=== PATIENT | female | born 1995 | race Caucasian/White ===

== ENCOUNTER → 2016-10-11 | Outpatient (CLI) | payer BC ==
[~2016-10-11] MED LIST: BCPILLS PO; MONT1TAB3 PO
== END | disposition home or self-care (01) ==
LOC: C.LABSPEC 15:06
PROVIDERS: ATTEND Obstetrics & Gynecology
DX: R31.9 Hematuria, unspecified (principal)

== ENCOUNTER 2016-11-21 04:53 | Emergency (ER) | payer BC ==
[~2016-11-21] VITALS: Ht 165.1 cm; Wt 61.0 kg
[2016-11-21 04:58] VITALS: TEMP 36.8; Ht 165.1 cm; Wt 61.0 kg
--- NOTE | 2016-11-21 05:16 | EMERGENCY ROOM VISIT NOTE ---
History Report prepared by Devin: Ryan Knott Under the Supervision of: Dr. Elsa Guajardo D.O. First contact with patient: 05:02 Chief Complaint: ABDOMINAL PAIN Stated Complaint: STOMACH PAIN,NAUSEA,SHAKES Nursing Triage Summary: Patient reports abdominal pain History of Present Illness The patient is a 21 year old female who presents to the Emergency Room with complaints of worsening abdominal pain since 214. The patient woke up to the pain and was unable to fall back asleep. The pain is described as a squeezing sensation. She has never had pain like this before. She also complains of nausea and throat tightness. She did have diarrhea prior to arrival. The patient has not vomited and denies leg pain or swelling. She was feeling fine yesterday other than having some abdominal discomfort after eating perogies. The patient denies any major medical problems. Her LNMP was 5-6 weeks ago. Source of History: patient Onset: 214 Position: abdomen Quality: other (squeezing) Timing: worsening Associated Symptoms: + diarrhea, + nausea, No vomiting Review of Systems See HPI for pertinent positives & negatives. A total of 10 systems reviewed and were otherwise negative. Past Medical & Surgical Medical Problems: (1) Asthma (2) Environmental and seasonal allergies Surgical Problems: (1) H/O bilateral breast reduction surgery (2) Hx of tonsillectomy Family History No pertinent family history Social History Smoking Status: Never Smoker Alcohol Use: occasionally Marital Status: single Occupation Status: [employer] Current/Historical Medications Scheduled Control Pills ( Control Pills), 1 TAB PO HS Montelukast Sodium (Singulair), 10 MG PO HS Allergies Coded Allergies: No Known Allergies (Unverified , 11/21/16) Physical Exam Vital Signs Date Time Temp Pulse Resp B/P Pulse Ox O2 Delivery O2 Flow Rate FiO2 11/21/16 07:08 72 16 128/69 99 Room Air 11/21/16 06:29 83 16 120/67 99 Room Air 11/21/16 04:58 36.8 103 18 127/84 98 Room Air Physical Exam HEENT: Head - normocephalic and atraumatic Pupils are equal, round, and reactive to light. Extraocular eye muscles are intact, and sclera are anicteric. Nose - moist nasal mucosa without discharge. Mouth - moist buccal mucosa. Oropharynx is nonerythematous and there is no tonsillar exudate or edema noted. Neck: Supple; no JVD, nuchal rigidity, cervical lymphadenopathy, or auscultated bruits. Heart: Regular rate and rhythm. There is a normal S1 and S2 with no murmurs, clicks, or gallops appreciated. Lungs: Clear to auscultation bilaterally with no wheezes, rales, or rhonchi. Abdomen: Soft, some discomfort with palpation above the umbilicus and epigastric region, nondistended, with good bowel sounds. There are no palpable pulsatile masses or hepatosplenomegaly. There is no guarding, rigidity, or rebound noted. Extremities: No evidence of cyanosis, clubbing, or edema. There are easily palpable peripheral pulses. Skin: warm and dry with good turgor and no rashes. Medical Decision & Procedures ER Provider Diagnostic Interpretation: X-ray results as stated below per interpretation by me. CHEST/ABDOMEN X-RAY: moderate colonic fecal retention, normal bowel gas pattern , no free air, no signs of obstruction. Laboratory Results 11/21/16 05:55 Red Blood Count 4.38, Mean Corpuscular Volume 86.8, Mean Corpuscular Hemoglobin 29.7, Mean Corpuscular Hemoglobin Concent 34.2, Mean Platelet Volume 8.9, Neutrophils (%) (Auto) 49.1, Lymphocytes (%) (Auto) 33.0, Monocytes (%) (Auto) 12.7, Eosinophils (%) (Auto) 4.1, Basophils (%) (Auto) 0.9, Neutrophils # (Auto ) 2.87, Lymphocytes # (Auto) 1.93, Monocytes # (Auto) 0.74, Eosinophils # (Auto ) 0.24, Basophils # (Auto) 0.05 11/21/16 05:55 Test 11/21/16 05:55 White Blood Count 5.84 K/uL (4.8-10.8) Red Blood Count 4.38 M/uL (4.2-5.4) Hemoglobin 13.0 g/dL (12.0-16.0) Hematocrit 38.0 % (37-47) Mean Corpuscular Volume 86.8 fL (80-100) Mean Corpuscular Hemoglobin 29.7 pg (25-34) Mean Corpuscular Hemoglobin Concent 34.2 g/dl (32-36) Platelet Count 340 K/uL (130-400) Mean Platelet Volume 8.9 fL (7.4-10.4) Neutrophils (%) (Auto) 49.1 % Lymphocytes (%) (Auto) 33.0 % Monocytes (%) (Auto) 12.7 % Eosinophils (%) (Auto) 4.1 % Basophils (%) (Auto) 0.9 % Neutrophils # (Auto) 2.87 K/uL (1.4-6.5) Lymphocytes # (Auto) 1.93 K/uL (1.2-3.4) Monocytes # (Auto) 0.74 K/uL (0.11-0.59) Eosinophils # (Auto) 0.24 K/uL (0-0.5) Basophils # (Auto) 0.05 K/uL (0-0.2) RDW Standard Deviation 41.7 fL (36.4-46.3) RDW Coefficient of Variation 13.0 % (11.5-14.5) Immature Granulocyte % (Auto) 0.2 % Immature Granulocyte # (Auto) 0.01 K/uL (0.00-0.02) Urine Color YELLOW Urine Appearance CLEAR (CLEAR) Urine pH 7.0 (4.5-7.5) Urine Specific [place] 1.025 (1.000-1.030) Urine Protein TRACE (NEG) Urine Glucose (UA) NEG (NEG) Urine Ketones NEG (NEG) Urine Occult Blood 2+ (NEG) Urine Nitrite NEG (NEG) Urine Bilirubin NEG (NEG) Urine Urobilinogen NEG (NEG) Urine Leukocyte Esterase SMALL (NEG) Urine RBC 0-4 /hpf (0-4) Urine WBC 10-30 /hpf (0-5) Urine Epithelial Cells 5-10 /lpf (0-5) Urine Bacteria 1+ (NEG) Urine Mucus PRESENT (NONE PRSENT) Urine Test NEG (NEG) Anion Gap 9.0 mmol/L (3-11) Est Creatinine Clear Calc Drug Dose 112.8 ml/min Estimated GFR () 141.1 Estimated GFR (Non- 121.8 BUN/Creatinine Ratio 12.3 (10-20) Calcium Level 9.1 mg/dl (8.5-10.1) Total Bilirubin 0.4 mg/dl (0.2-1) Direct Bilirubin < 0.1 mg/dl (0-0.2) Aspartate Amino Transf (AST/SGOT) 23 U/L (15-37) Alanine Aminotransferase (ALT/SGPT) 21 U/L (12-78) Alkaline Phosphatase 67 U/L (45-117) Total Protein 7.3 gm/dl (6.4-8.2) Albumin 3.3 gm/dl (3.4-5.0) Lipase 116 U/L (73-393) Laboratory results per my review. Medications Administered Medications (Trade) Dose Ordered Sig/[facility] Route Start Time Stop Time Status Last Admin Dose Admin Ketorolac Tromethamine (Toradol Inj) 30 mg NOW STAT IV 11/21/16 06:08 11/21/16 06:09 DC 11/21/16 06:15 30 MG Ondansetron HCl (Zofran Inj) 4 mg NOW STAT IV 11/21/16 06:08 11/21/16 06:09 DC 11/21/16 06:15 4 MG Procedure Medications administered include Zofran IV, Toradol IV. ED Course 0508: Past medical records reviewed. The patient was evaluated in room B5. A complete history and physical exam was performed. IV lock was established. Labs were drawn as above. 0608: Zofran 4 mg IV, Toradol 30 mg IV. The patient had an obstruction series as described above. 0650: The patient is feeling good. Her pain is gone and she has not vomited. She verbalized understanding and agreement of the treatment plan. The patient is ready for discharge. Medical Decision The patient is a 21 year old female who presents to the ED with abdominal pain. Differential diagnosis includes gastritis, cystitis, appendicitis, GERD, pancreatitis. Laboratory interpretation: Normal electrolytes, normal renal function, normal glucose, normal LFTs and lipase, no leukocytosis, stable H&H. Urine was negative for , trace protein, 2+ blood, 10-30 white blood cells, small leukocyte esterase. Patient presents to the emergency department with diffuse abdominal pain. The patient has a urine specimen which appears to be contaminated. She has no urinary symptoms. The patient's pain subsided while here in the emergency department. She had no further vomiting. The throat tightness seemed to subside as the patient stated she may have been worked up about the situation. I given the patient multiple precautionary instructions and have asked her to follow-up with student health services if the pain persists. If symptoms worsen , she should return here to the ER. Impression Primary Impression: Diffuse abdominal pain Scribe Attestation The scribe's documentation has been prepared under my direction and personally reviewed by me in its entirety. I confirm that the note above accurately reflects all work, treatment, procedures, and medical decision making performed by me. Departure Information Dispostion Home / Self-Care Referrals Fadi Coker M.D. (PCP) Forms HOME CARE DOCUMENTATION FORM, IMPORTANT VISIT INFORMATION Patient Instructions My [facility] Additional Instructions Rest. Take a bland diet and plenty of clear liquids Follow up at student health services if pain continues. Return to the ER if symptoms worsen
[2016-11-21] MEDS ORDERED: KETOROLAC TROMETHAMINE 30 MG/ML VIAL IV STA (06:08)
[2016-11-21] MEDS ORDERED: ONDANSETRON INJ 2 MG/ML 2 ML VIAL IV STA (06:08)
[2016-11-21 06:24] LABS: BASO % 0.9 %; BASO ABS # 0.05 K/uL (0-0.2); COMPLETE YES; EOS % 4.1 %; IG% 0.2 %; LYMPH ABS # 1.93 K/uL (1.2-3.4); MEAN CELL VOLUME 86.8 fL (80-100); MEAN CORPUSCULAR HEMOGLOBIN 29.7 pg (25-34); MEAN CORPUSCULAR HGB CONC 34.2 g/dl (32-36); MEAN PLATELET VOLUME 8.9 fL (7.4-10.4); MONO % 12.7 %; NEUT % 49.1 %; PLATELET COUNT 340 K/uL (130-400); RED BLOOD COUNT 4.38 M/uL (4.2-5.4); WHITE BLOOD COUNT 5.84 K/uL (4.8-10.8)
[2016-11-21 06:26] LABS: MANUAL MICROSCOPIC REQUIRED? YES; URINE APPEARANCE CLEAR (CLEAR); URINE BILIRUBIN NEG (NEG); URINE COLOR YELLOW; URINE NITRITE NEG (NEG); URINE SPECIFIC GRAVITY 1.025 (1.000-1.030); UROBILINOGEN NEG (NEG)
[2016-11-21 06:32] LABS: REVIEW REQ? NO
[2016-11-21 06:33] LABS: URINE RBC 0-4 /hpf (0-4)
[2016-11-21 06:34] LABS: URINE BACTERIA 1+ (NEG); URINE MUCUS PRESENT (NONE PRSENT)
[2016-11-21 06:40] LABS: ALT/SGPT 21 U/L (12-78); BLOOD UREA NITROGEN 9 mg/dl (7-18); BUN/CREATININE RATIO 12.3 (10-20); CALCIUM 9.1 mg/dl (8.5-10.1); CARBON DIOXIDE 24 mmol/L (21-32); CHLORIDE 106 mmol/L (98-107); CREATININE 0.71 mg/dl (0.60-1.20); GLUCOSE 92 mg/dl (70-99); POTASSIUM 3.9 mmol/L (3.5-5.1); SODIUM 139 mmol/L (136-145)
[2016-11-21 06:43] LABS: ALKALINE PHOSPHATASE 67 U/L (45-117); AST/SGOT 23 U/L (15-37)
[2016-11-21 07:08] VITALS: BP 128/69; PULSE 72; O2SAT 99
--- NOTE | 2016-11-21 08:02 | DIAGNOSTIC IMAGING REPORT ---
PA CHEST WITH ABDOMINAL SERIES CLINICAL HISTORY: Epigastric abdominal pain. Nausea and vomiting. Diarrhea. FINDINGS: A PA chest radiograph is obtained. No prior studies are available for comparison at the time of dictation. The cardiomediastinal silhouette is unremarkable. The lungs and pleural spaces are clear. No pneumothorax is seen. The bony thorax is grossly intact. Supine and erect abdominal radiographs are obtained. No prior studies are available for comparison at the time of dictation. There is a nonobstructed abdominal bowel gas pattern. Moderate colonic fecal retention is observed. No peritoneal free air is seen. There are no abnormal abdominal calcifications. The lumbosacral spine and bony pelvis appear intact. A naval piercing is observed. IMPRESSION: 1. No active disease in the chest. 2. Moderate constipation. Electronically signed by: Alton Patel M.D. 11/21/2016 8:01 AM Dictated Date/Time: 11/21/2016 8:00 AM
== END 2016-11-21 07:17 | disposition home or self-care (01) ==
LOC: C.EDB 04:55
DX: R10.9 Unspecified abdominal pain (principal); J45.909 Unspecified asthma, uncomplicated; J30.2 Other seasonal allergic rhinitis; Z79.3 Long term (current) use of hormonal contraceptives; Z79.899 Other long term (current) drug therapy

== ENCOUNTER → 2016-11-22 | Outpatient (CLI) | payer BC ==
[2016-11-26 02:45] LABS: CHLAMYDIA TRACH RNA*** NOT DETECTED (NOT DETECTED); GC (NEIS GONORRHOEAE)RNA** NOT DETECTED (NOT DETECTED)
== END | disposition home or self-care (01) ==
LOC: C.PATHSPEC 14:31 → C.LABSPEC 15:26 → C.PATHSPEC 11-23 14:31
PROVIDERS: ATTEND Obstetrics & Gynecology
DX: R10.2 Pelvic and perineal pain (principal)